=== PATIENT | male | born 1940 ===

== ENCOUNTER → 2025-04-21 08:52 | Outpatient (REF) | payer MEDICARE, OTHER, SELFPAY | LOC: RAD 08:52 | PROVIDERS: ATTENDING PHYSICIAN Internal Medicine Interventional Cardiology; FAMILY PHYSICIAN Family Medicine | DX: I35.0 Nonrheumatic aortic (valve) stenosis (principal) | CPT/HCPCS: 74174; 75572; Q9967 ==

== ENCOUNTER 2025-06-09 05:22 | Inpatient (IN) | payer MEDICARE, OTHER, SELFPAY ==
--- NOTE | 2025-06-02 08:30 | HPS.HSE ---
Family Physician
-
Family Physician: Wilda Rutledge MD
Chief Complaint
-
RENE/Fatigue
PreTAVR evaluation
History of Present Illness
Mr. Singh is a very pleasant 84-year-old gentleman with a past medical history significant for severe aortic stenosis, HTN, A-fib, HLD, CVA, CKD, right nephrectomy, CAD, and RBBB. His most recent echocardiogram from 02/15/2025 demonstrated an LVEF of
56% with peak/mean aortic valve gradients of 70/43 mmHg respectively. He has a peak velocity of 4.17 m/s he has trace to mild aortic insufficiency. He has moderate MAC. With trace MR and a mean mitral valve gradient of 2.3 mmHg. He has mild TR.
Subsequent cardiac catheterization performed on 03/25/2025 demonstrated nonobstructive epicardial CAD with marked ectasia of his RCA without any significant stenoses. He was reviewed with the heart team on 04/29/2025 and recommended for a 29mm S3 via
right transfemoral access.
Assessed Mr. Singh in preadmission testing and confirmed medication list. Last dose warfarin will be Friday (06/05), he will take 325 mg aspirin on Friday (06/06) and aspirin 81 mg -. Patient will arrive to the [facility] at 0530. Reviewed
the risks of the procedure as discussed in consult with Dr. Shanks including PPM, stroke, and vascular injury. Allowed for and answered questions to the best of my ability.
Medical History
Past Medical History
Past Medical History: Reports Arrhythmia (afib), CAD, CVA, HTN, Valvular Disease and Other (CKD, HLD, RBBB)
Additional Past Medical History:
aortic stenosis
Past Surgical History: Reports Orthopedic ((L) knee replacement, (L) rotator cuff repair) and Other ((R) nephrectomy, prostatectomy)
Social History
Tobacco: Former Smoker
Alcohol: None
Drug: None
Personal:
Living: With Family
Employment: Retired ([employer])
Family History
Family History: Not pertinent
Allergies / Home Medications
Allergies reflects when Allergies were last updated in [facility].
Home Medications with original date entered in [facility]
amLODIPine Besylate 5 MG Tablet 1 tablet Orally Once a day
Atorvastatin Calcium 40 MG Tablet 1 tablet Orally Once a day
Esomeprazole Magnesium 20 MG Tablet Delayed Release 1 tablet on Friday and Friday Orally twice weekly , Notes to Pharmacist: sarah
Lisinopril 5 MG Tablet 1 tablet Orally Once a day
Warfarin Sodium 5 MG Tablet 1 tablet Orally Once a day
Allergy/Medication List:
pencicillin
Review of Systems
-
A 12 point ROS was completed and negative except as noted: Yes
Constitutional: Reports Fatigue
Respiratory: Reports Other (RENE)
Physical Exam
Physical Exam
General: Well Developed, Well Nourished and No Apparent Distress
HEENT: NormoCephalic
Respiratory: Clear
Cardiac: Murmur (III/ RAVIN)
Breast: Deferred by me
GI: Soft and Non Tender
Rectal: Deferred by Provider
Skin: Warm and Dry
Neuro: Awake, Alert and Oriented
Data Reviewed
-
Diagnostic Radiology: Report Reviewed by me
CT Scan: Report Reviewed by me and Discussed with Physician (reviewed TAVR CT scan with the heart team)
Medical Tests (Nuc Med, Echo, EKG etc): Report Reviewed by me and Discussed with Physician (Reviewed Echocardiogram and cardiac catheterization with the heart team)
Lab Data: Labs Reviewed by me
Old Records: Reviewed
Impression/Plan
-
IMPRESSION/PLAN:
Aortic Stenosis
TF TAVR planned with Drs. Herrera and Dimitris utilizing a 29 mm S3
Hold warfarin x 3 days. Aspirin while warfarin held. D/c aspirin once warfarin resumed
POD #1/#30 Echo
Cardiac rehab consult
Labs
-
Labs:
WBC 6.8 10^3/uL (4.8-10.8) 06/02/25 11:59
RBC 4.97 10^6/uL (4.70-6.10) 06/02/25 11:59
Hgb 15.2 g/dL (13.0-18.0) 06/02/25 11:59
Hct 44.8 % (39.0-52.0) 06/02/25 11:59
Plt Count 191 10^3/uL (130-400) 06/02/25 11:59
Sodium 141 mmol/L (135-145) 06/02/25 11:59
Potassium 4.7 mmol/L (3.5-5.1) 06/02/25 11:59
Chloride 107 mmol/L (98-107) 06/02/25 11:59
Carbon Dioxide 28 mmol/L (22-30) 06/02/25 11:59
BUN 34 mg/dl (9-20) H 06/02/25 11:59
Creatinine 1.7 mg/dL (0.7-1.3) H 06/02/25 11:59
eGFR 39.51 06/02/25 11:59
Glucose 81 mg/dl (70-99) 06/02/25 11:59
Calcium 9.4 mg/dl (8.4-10.2) 06/02/25 11:59
Moa-G-Allatkutoim Pept 1480 pg/ml 06/02/25 11:59
Albumin 4.2 g/dl (3.5-5.0) 06/02/25 11:59
[2025-06-02 11:50] VITALS: BMI 31.2
[2025-06-02 12:33] LABS: Hematocrit 44.8 % (39.0-52.0); Hemoglobin 15.2 g/dL (13.0-18.0); Mean Corp Hgb Conc. 33.9 g/dL (33.0-37.0); Mean Corpuscular Volume 90.1 fL (80.0-94.0); Nucleated Red Blood Cells % 0 % (-); Platelet Count 191 10^3/uL (130-400); Red Cell Dist. Width 12.7 % (11.5-14.5)
[2025-06-02 12:37] LABS: Urine Character Clear (Clear)
[2025-06-02 12:55] LABS: INR 2.50; PT 27.4 Sec (11.4-14.6)
[2025-06-02 13:02] LABS: ALT (SGPT) 30 U/L (0-50); AST (SGOT) 33 U/L (17-59); Albumin 4.2 g/dl (3.5-5.0); Alkaline Phosphatase 80 U/L (38-126); Blood Urea Nitrogen 34 mg/dl (9-20); Calcium 9.4 mg/dl (8.4-10.2); Carbon Dioxide 28 mmol/L (22-30); Chloride 107 mmol/L (98-107); Estimated Creatinine Clearance 37 ml/min; Glucose 81 mg/dl (70-99); Potassium 4.7 mmol/L (3.5-5.1); Sodium 141 mmol/L (135-145); Total Protein 6.8 g/dl (6.3-8.2); eGFR 39.51
--- NOTE | 2025-06-02 13:13 | CM ---
Chart reviewed. Met with the patient and his in PAT. Reviewed preoperative and postoperative instructions and restrictions, along with showering guidelines. Gave patient 2 soaps and TAVR Book. Patient is agreeable to a home visit by CT
Transitional Care RN. Patient is independent of ADLS, lives in a [facility], [address] [facility], 0 DME. Plan is for the patient to return home with CT Transitional RN.
[2025-06-02 13:17] LABS: Urine Red Blood Cell 0-2 /HPF (0-2); Urine White Cell 0-2 /HPF (0-5)
[2025-06-02 14:14] LABS: Glycohemoglobin (HgbA1c) 5.5 % (4.0-5.6)
[2025-06-09] VITALS (50 sets, daily range): BP systolic 94–167; BP diastolic 57–104; BMI 30.9
[2025-06-09 06:01] LABS: INR 1.37; PT 17.3 Sec (11.4-14.6)
--- NOTE | 2025-06-09 06:14 | PTCARENOTE ---
Pt arrived from home with and friend into 2251. Pt AAOx3 ambulated independently. SR w PAC's and BBB. Pt did pre procedure prep at home last night and this morning. Pt was clipped upon arrival followed by CHG wipes. IV placed. 81 mg ASA was
taken @ 0 this morning and last Coumadin dose was Tuesday 06/05. Neuro WNL, speech clear, and CHOCTAW. ABO and protime collected and sent to lab.
--- NOTE | 2025-06-09 06:18 | W.CVOR.SURPR ---
CVOR Surgeon Immed Pre Op
-
I have examined this patient prior to performance of the scheduled procedure.
The patient's condition is unchanged from the time of the dictated/written History and
Physical and the patient is able to undergo the scheduled procedure.
[2025-06-09 08:34] LABS: ACT-LR - POC 248 Seconds (116-155)
[2025-06-09 09:00] LABS: ACT-LR - POC > 397 Seconds (116-155)
--- NOTE | 2025-06-09 09:00 | W.IMMPOSTOP ---
Surgical Immed Post Op Note
-
[id number]
STRUCTURAL HEART PROCEDURE NOTE: TAVR
Preoperative Dx:
Severe aortic stenosis (P/M: 70/43, Desizing Machine Operator 4.17, [id number] AI)
Trace MR and mild TR
Non-obstructive CAD w/ ectasia of RCA
Hx of CVA in 2010
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
PAF on Coumadin
CKD (1.7)
Right nephrectomy (benign mass)
Elevated PSA - s/p prostatectomy
Postoperative Dx:
Same
Ltltn-ni-cvkonod combined systolic/diastolic CHF w/ elevated LVEDP (26mmHg)
New CHB
Procedures:
1) L CFV access w/ U/S and fluoroscopic guidance, long 6Fr sheath placement
2) L HAT SPRAYER access w/ tactile, U/S, and fluoroscopic guidance, micropuncture technique, limited angiography via micropuncture sheath, long 6Fr sheath placement
3) R HAT SPRAYER access w/ tactile, U/S, and fluoroscopic guidance, micropuncture technique, limited angiography via micropuncture sheath, 8Fr dilator placement
4) Perclose placement x 2 into R HAT SPRAYER, 8Fr sheath placement
5) Placement of temporary RV pacing wire, threshold testing
6) Placement of Blackburn E-sheath via R HAT SPRAYER (systemic heparinization)
7) Placement of pigtail catheter in RCC via L HAT SPRAYER access w/ limited aortography & confirmation of co-planar valve deployment angle
8) Wire purchase across stenotic AV (AL-1, soft-tip straight, LVEDP assessment, extra-stiff)
9) R TF TAVR w/ placement of 29mm FADI 3 RESILA valve (+1)
10) Completion aortography
11) Completion TTE (mean gradient 5mmHg, trace AI (?wire related)
12) Temporary pacer secured secondary to CHB post deployment (repositioned x 1; resecured)
13) Removal of Blackburn E-sheath w/ R HAT SPRAYER mgmt w/ perclose sutures x 2; manual pressure
14) Completion R ileofemoral angiography
15) Removal of L HAT SPRAYER long 6Fr sheath w/ mgmt w/ 6Fr angioseal x 1; manual pressure (protamine administration)
Draft Roller Picker:
Dr. Maritza Herrera
Cardiac Surgeon:
Dr. Blade Shanks
Anesthesia:
MAC w/ local to B/L groins
Implants:
Blackburn Lifesciences; 29mm FADI 3 RESILIA; SN [id number]
Perclose x 2 to R HAT SPRAYER
6Fr angioseal x 1 to L HAT SPRAYER
Cath Data:
Start: 0753hrs, Deploy: 0832hrs, End: 0852hrs
FT: 10.1min, mGy: 236, DAP: 28.0, Contrast: 56mL
Post-TTE: mean gradient 5mmHg, trace AI
Complications:
New pacer-dependent CHB post TAVR (EP aware & planning for potential PPM placement for later today)
Condition:
Stable/guarded to recovery
--- NOTE | 2025-06-09 09:12 | CM ---
Addendum entered by CHRISSY Hinojosa 06/09/25 12:08:
Met w/ spouse at bedside.
Pt. was sleeping soundly.
Introduced CM, reviewed role.
Antic. DC plan is for home, no needs.
Original Note:
CM following for DC planning needs.
Patient in OR today for planned TAVR procedure.
DC plan is for home w/ CT Transitional Care RN.
Prior to admission, patient resides w/ spouse in a private, [facility]. Functionally, patient is indep. at baseline w/ ADLs, mobility.
CM to follow.
--- NOTE | 2025-06-09 09:49 | ITS.CL.TAVR ---
Supervisory Lifeguard - TAVR Report
TAVR PRocedure
Procedure Report:
TRANSCATHETER AORTIC VALVE REPLACEMENT
Date of Procedure: June 09, 2025
Referring: Thelma Kennedy
Operators: Drs. Maritza Herrera and Blade Shanks
PROCEDURE PERFORMED:
1. Successful placement of 29 +1cc mm Blackburn Rahel S3 aortic valve via right common femoral approach.
ACCESS:
1. Right common femoral artery, 8 Sudanese sheath, under ultrasound guidance using a micropuncture kit.
2. Right common femoral vein, 6 Sudanese sheath, under ultrasound guidance using a micropuncture kit.
3. Left common femoral artery, 6 Sudanese sheath, under ultrasound guidance using a micropuncture kit.
Ultrasound was utilized for vascular access. The right and left femoral artery and vein were visualized under ultrasound, and the vessels was patent and arteries were pulsatile. An image was stored permanently in the patient's medical record.
Under direct ultrasound guidance, a 8 Sudanese sheaths was inserted into the right common femoral artery and vein, and an 6 Sudanese sheath in the left common femoral artery, respectively, using a micropuncture kit through a modified Seldinger technique.
PREPROCEDURE NYHA CLASS: II
DESCRIPTION OF PROCEDURE: The patient was referred for assessment of severe symptomatic aortic stenosis and following a comprehensive evaluation it was felt that transcatheter aortic valve replacement (TAVR) would be the most appropriate treatment.
Informed consent was obtained prior to the procedure. A 'time-out' was called and the procedural plan was verbally confirmed by anesthesia, surgery, perfusion, and clinical laboratory aide staff.
Arterial and venous access site were obtained in the left common femoral artery and vein using ultrasound guidance and micropuncture technique. 6 Fr. sheaths were inserted.
A 5 Fr. transvenous pacing wire was advanced to the right ventricle where excellent pacing thresholds were obtained.
A 5 Fr. pigtail catheter was then advanced to the proximal ascending aorta / right aortic cusp where angiography was performed in multiple angles to define the co-planar angle that was most appropriate valve deployment (GIBBS 3/CAU 12 ).
Ultrasound guidance was then used to obtain arterial access in the [ ] common femoral artery and a 4 Fr. micropuncture sheath was inserted. Angiography was performed and the arteriotomy site appeared appropriate for preclosure with two Perclose
devices. An 8 Fr sheath was then inserted back into the common femoral artery over a J-tipped guidewire. An AL1 catheter was positioned in the proximal descending aorta. An Extra Stiff 0.035' J-tip wire was inserted to provide extra-support to
facilitate the Blackburn eSheath delivery. The 16 Fr. Blackburn eSheath was successfully advanced in the descending thoracic aorta.
An AL1 catheter was advanced through the Blackburn eSheath over a 0.035' J-tip guide wire. The AL1 catheter was positioned just above the aortic valve. A 0.035' Straight tip wire probed the aortic valve and crossed the stenotic leaflets. The AL1
was then advanced to the mid left ventricle. Estimated LV end-diastolic pressure invasively was 25. An Amplatz Extra-stiff wire with a generous curved tip was then positioned in the left ventricular apex. A 29 +1cc mm Blackburn Rahel S3 valve was
brought to the table and the orientation of the valve on the balloon delivery system was confirmed by all operators. The Rahel S3 valve was advanced through the eSheath and into the proximal descending thoracic aorta. The Rahel S3 valve was
centered on the delivery balloon and the entire system was retroflexed as it crossed the aortic arch. The Rahel S3 delivery system was then advanced across the stenotic valve and the 29 +1cc mm Rahel S3 valve was deployed during rapid pacing.
The valve deployment was uneventful. Transthoracic echocardiographic images post valve deployment revealed minimal aortic insufficiency with excellent position of the aortic prosthesis. Patient unfortunately with a baseline right bundle branch
block developed complete heart block post valve deployment and therefore the transvenous temporary pacemaker was sutured in place via left common femoral venous sheath and electrophysiology will be consulted for permanent pacemaker.
The Blackburn balloon and delivery system were then removed. The Blackburn sheath was removed and the Perclose knots were advanced to the arteriotomy site resulting in excellent hemostasis.
Fluoro Time: 10.1 min, Dose: 236 mGy, DAP : 28.0 gy.cm2
CONCLUSIONS:
1. Severe symptomatic aortic stenosis. Successful deployment of a 25 mm Rahel S3 valve with minimal aortic insufficiency post procedure
2. Successful arteriotomy closure with 2 Perclose devices.
3. Acute on chronic diastolic heart failure with LVEDP of 25mmHg.
Maritza Herrera MD, FACC, [facility]
Copy to: Thelma Kennedy
--- NOTE | 2025-06-09 11:15 | PTCARENOTE ---
Received pt from cardiac cardiac cath lab radiology technologist at [address] [facility] [address]. Left groin site w/ venous sheath intact w/ temporary pacer wire. Temporary pacemaker settings:80 w/ MA of 20. IVF's at 10 ml/hr through venous sheath. Levophed at 1 mcg/min. Post TAVR
orders noted. Pt remains NPO for PPM.
--- NOTE | 2025-06-09 13:33 | W.PN.UPDATE ---
Update Note
Progress Note Update
Discussed with patient and need for permanent pacing. Pre TAVR RBBB. Postoperatively he has been 100% pacing via temporary wire without underlying rhythm.
Discussed left sided implant with 1:1000 risk of MA/stroke/ and a 1% risk for PTX, tamponade, infection, bleeding or lead dislodgement. Patient gave assent and patient's signed informed consent. I took time to answer all questions.
--- NOTE | 2025-06-09 17:27 | ITS.CL.PACE ---
Welcome Center Attendant - Pacemaker Implant
Pacemaker Implant
Procedure Report:
Date of Procedure: June 09, 2025
Patient : 1940
Procedure: Pacemaker Implantation.
Indication: Complete heart block after TAVR procedure
Implants:
Pulse Generator: Medtronic; Model# W1 DR 01 SN: [id number]
RA Lead: Medtronic; Model# 4574; SN: [id number]
RV Lead: Medtronic; Model# 4074; SN: [id number]
Technique: A time out was performed. The procedure site was identified. The patient was anesthetized by the anesthesia service. Preoperative sedation was administered. The patient was prepped and draped in the usual fashion. Local anesthetic was
applied to the left prepectoral subcutaneous tissue. A 3 inch incision was made 2.5 inches below the left clavicle. A subcutaneous pocket was created with blunt and sharp dissection and hemostasis controlled with Bovie cautery. The left axillary
vein was accessed within the pocket without difficulty. Hemostasis was excellent. The leads were introduced with 7 Fr hemostatic peel away introducer sheaths. The ventricular lead was placed at the right ventricular apex. The atrial lead was placed
in the right atrial appendage. 10 volt pacing did not capture the diaphragm. The leads were secured to the pectoralis muscle and fascia. The leads were appropriately attached to the device. The pocket was irrigated with antibiotic solution. The
device and leads were placed in the pocket. The incision was closed in three layers with absorbable suture. The estimated blood loss was minimal. There were no complications.
6.5 minutes of pulsed fluoroscopy 18.7 mg
After the leads were connected to the generator and placed in the pocket we then removed the left femoral vein temporary pacemaking wire under direct fluoroscopic guidance without any displacement of the pacemaker leads and check of the leads after
removal of the temporary wire demonstrated stable parameters.
Lead Analysis:
RA lead: P: 4.3 mV; Threshold: 0.5 V @ 0.5 ms; Impedance: 684 ohms.
RV lead: R: 0 mV; Threshold: 0.5 V @ 0.5 ms; Impedance: 1235 ohms.
Final Programming: DDDR 6030 bpm
Conclusion: Uncomplicated Medtronic pacemaker implant.
Recommendation: Routine post pacemaker care.
--- NOTE | 2025-06-09 18:01 | PTCARENOTE ---
Received pt post PPM. The temporary wire and venous sheath via the left femoral vein were d/c'd in the laborer prestressed concrete. Left groin dressing clean, dry and intact. Left ACW PPM antibacterial dressing clean, dry and intact. Left arm immobilizer intact.
Post op orders noted. Will monitor.
[2025-06-09] MEDS: LIPITOR PO (19:33)
[2025-06-10] VITALS (8 sets, daily range): BP systolic 116–158; BP diastolic 62–84; PULSE 68; O2SAT 72–98; BMI 31.5
--- NOTE | 2025-06-10 00:33 | PTCARENOTE ---
Rec'd pt at change of shift. Pt AAO*3, VSS, and vpaced on TELE monitor with occasional AV pacing. Pt with bilateral groin sites CDI. PT denies having any pain or discomfort. Pt taken to XRay for post procedure Xray with RN. Pt updated on plan
of care and agrees to activity restrictions. See MAR and flowchart for full pt care and assessment. Pt resting with call sanchez in reach.
[2025-06-10 04:02] LABS: Hematocrit 41.2 % (39.0-52.0); Hemoglobin 14.4 g/dL (13.0-18.0); Mean Corp Hgb Conc. 35.0 g/dL (33.0-37.0); Mean Corpuscular Volume 89.4 fL (80.0-94.0); Platelet Count 143 10^3/uL (130-400); Red Cell Dist. Width 12.7 % (11.5-14.5)
[2025-06-10 04:13] LABS: INR 1.31; PT 16.8 Sec (11.4-14.6)
[2025-06-10 04:23] LABS: Blood Urea Nitrogen 29 mg/dl (9-20); Calcium 9.2 mg/dl (8.4-10.2); Carbon Dioxide 22 mmol/L (22-30); Chloride 112 mmol/L (98-107); Estimated Creatinine Clearance 52 ml/min; Glucose 101 mg/dl (70-99); Magnesium 2.1 mg/dl (1.6-2.3); Potassium 4.4 mmol/L (3.5-5.1); Sodium 138 mmol/L (135-145); eGFR > 60.00
--- NOTE | 2025-06-10 06:20 | W.PN.CT ---
Today's Communication / Plan
-
-pod #1
-no issues overnight
-s/p permanent pacer post TAVR. AV-paced 60s-70s with PACs overnight
-Echo today
-current meds (Lipitor, Zestril, Norvasc, Protonix). Re-start Coumadin. INR today 1.31
-Echo today
-encourage IS, ambulate
-likely d/c
Assessment / Plan
-
- Severe symptomatic - s/p R TF TAVR w/ placement of 29mm FADI 3 RESILA valve (+1) on 06/09/25, pod #1
- Post-TTE: mean gradient 5mmHg, trace AI
- Ymdoy-zy-uwzjruh combined systolic/diastolic CHF w/ elevated LVEDP (26mmHg)
- CHB post TAVR - s/p pacemaker implant by Dr. Workman on 06/09/25
- Trace MR and mild TR
- Non-obstructive CAD w/ ectasia of RCA
- Hx of CVA in 2010
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
- Paroxysmal AF on Coumadin
- CKD (1.7)
- Right nephrectomy (benign mass)
- Elevated PSA - s/p prostatectomy
Discussed patient care with: Nursing and Care Team
Subjective
-
Date of Service: June 09, 2025
Objective Data
-
Lab Results
06/02/25 11:59
06/02/25 11:59
PT 17.3 Sec (11.4-14.6) H 06/09/25 05:38
INR 1.37 06/09/25 05:38
Vital Signs
Vital Signs
Temp Pulse Resp BP Pulse Ox
97.8 F 70 16 132/62 95
06/09/25 22:30 06/09/25 22:30 06/09/25 22:30 06/09/25 22:30 06/09/25 22:30
CT Intake/Output/Weight
06/09/25 06/09/25 06/10/25
06:59 18:59 06:59
Intake Total 251.4 / 251.4
Output Total 600 / 800 200 / 800
Balance -600 / -548.6 51.4 / -548.6
SaO2: 95
Physical Exam
-
General: Awake and AOx3
Cardiovascular: Regular rate & rhythm, No Murmurs and No Rub
Respiratory: Clear and Decreased Breath Sounds
Sternum: Stable
Incision: Other (groins are cdi, soft, nontender, no hematoma b/l)
Extremities: Other (trace edema, 2+ DPs b/l)
Abdomen: soft, nontender, nondistended, + bowel sounds
Data Reviewed
-
Lab Results: Results Reviewed
Medications: Active Meds Reviewed
Chest X-Ray: Report Reviewed and Image Reviewed
ECG: Report Reviewed and Image Reviewed
[2025-06-10] MEDS: PROTONIX 40 MG PO (08:41)
[2025-06-10] MEDS: ZESTRIL 5 MG PO (08:42)
[2025-06-10] MEDS: LIPITOR 40 MG PO (08:42)
--- NOTE | 2025-06-10 08:50 | W.DCSUMMARY ---
Discharge Summary
Discharge Data
Date of Admission: 06/09/25
Date of Discharge: 06/10/25
-
Pending Results: No
Hospital Course
Primary care physician: Wilda Rutledge
Outpatient android developer: Thelma Kennedy
Inpatient consultants: [facility]
Procedures:
1. 06/09/2025 right transfemoral TAVR with a #29 S3 Resilia by Drs. Shanks and Sharon
2. 06/09/2025 medtronic permanent pacemaker implantation by Dr. Leo Workman
Primary Diagnosis:
1. severe aortic stenosis
2. acute on chronic systolic & diastolic CHF with LVEDP 26mmHg
3. complete heart block post TAVR now s/p medtronic PPM implant 06/09/25
Secondary Diagnoses:
1. nonobstructive CAD with ectasia of RCA
2. hx CVA 2010
3. chronic RBBB
4. paroxysmal atrial fibrillation, chronically on coumadin
5. CKD with baseline creat ~1.7
6. hx right nephrectomy for benign mass
7. elecated PSA s/p prostatectomy
HPI: Patient is an 84-year-old male with complaints of dyspnea on exertion and fatigue. Most recent echo demonstrated now severe with peak and mean gradient of 70/43 mmHg with preserved EF at 53%. He was referred for TAVR. After all preop
workup was completed he was deemed a suitable candidate to undergo the procedure.
Hospital course: Patient was brought in electively on 06/09/2025 where he underwent a right transfemoral TAVR by Drs. Shanks and Sharon. Postprocedure he developed a complete heart block and the temporary pacing wire was left in place through the
venous sheath postop. Patient was evaluated by EP who determined need for permanent pacemaker which was implanted later that evening. Please see full operative reports for details. Patient remained hemodynamically stable overnight, he is AV
paced. Pacer incision site and bilateral groins are stable. Follow-up echo demonstrates a well-seated TAVR with mean gradient of 8 mmHg. Norvasc was discontinued and patient was started on Toprol-XL per recommendations from cardiology. Patient
is ambulatory and stable for discharge to home.
Home medication changes: Norvasc has been stopped, patient started on Toprol XL 12.5 mg daily
Discharge Plan
-
Patient Disposition: Home (Routine Discharge)
Discharge Diagnosis/Procedures: severe ; s/p right TF TAVR, Pacemaker implant 06/09/25
Condition: Good
Diet: Low Cholesterol and Low Sodium
Activity: No strenuous activity
Driving Restrictions: No driving for 1 week
Bathing Restrictions: OK to Shower
Others Tests: 30 day follow up echo:
Other Services: Cardiac Rehab
Specialty Instructions: Weigh Daily- Call MD for wt gain/loss 3 lbs overnight/5 lbs in 1 week
Activity Restrictions/Additional Instructions:
Please Call to make appointments for Phase II Cardiac Rehab:
1) [facility]'s: [phone] (19 min away)
2) [facility]'s: [phone] (13 min away)
Stand Alone Forms: DC Inst - Implanted Device
Referrals:
[facility] [Provider Group] - 06/16/25 10:20 am
Referral Note: Incision check appointment
CT Transitional Care Nurse [Outside]
Referral Note: The Cardiothoracic Transitional Care Nurse will call you to set up a visit in 1-2 days.
Thelma Kennedy MD [Non-Admitting Privileges, Cardiology] - 07/04/25 4:05 pm
Wilda Rutledge MD [Family Provider]
Prescriptions:
New
acetaminophen 325 mg Tablet
650 mg PO Q6HPRN PRN (Reason: TOVAR, mild pain, or fever >101F) Qty: 0 0RF
metoprolol succinate 25 mg Tablet Extended Release 24 Hr
12.5 mg PO DAILY Qty: 15 1RF
Continued
atorvastatin 40 mg Tablet
40 mg PO DAILY Qty: 0 0RF
esomeprazole magnesium 20 mg Tablet,Delayed Release (Dr/Ec)
20 mg PO DAILY Qty: 0 0RF
warfarin 5 mg Tablet
5 mg PO DAILY Qty: 0 0RF
lisinopril 5 mg Tablet
5 mg PO DAILY Qty: 0 0RF
Discontinued
amlodipine 5 mg Tablet
5 mg PO DAILY
Discharge Orders:
Discharge Patient (As Directed); Ordered 06/10/25
Ordered By: Galina Chase
Care Plan Goals
Care Plan Goals:
Problem: Readiness for enhanced knowledge related to diagnosis and treatment plan
Goal: Understand your diagnosis and treatment plan needs, including medications if applicable.
Instructions: Know your diagnosis, underlying causes and treatment plan options, including medications if applicable. Consult with your health care team to learn about your diagnosis and treatment plan, including medications if applicable.
Discharge Date and Time
Print Language: QATARI
--- NOTE | 2025-06-10 08:59 | W.PN.CARDCBS ---
Addendum entered and electronically signed by Maritza Herrera MD 06/10/25 18:36:
I saw and examined the patient.
The Invoicing Machine Operator's note was reviewed and I agree with the note.
Comment: Patient is doing well post 29 mm Blackburn FADI 3 Resilia valve yesterday +1 cc on June 09, 2025 through right common femoral artery.
No complaints this morning.
Vital signs and lab work reviewed. On exam patient is well-appearing, no acute distress, regular rate, normal S1 and S2, no murmurs, rubs or gallops, abdomen is soft, nontender, nondistended with active bowel sounds, bilateral groin sites without
evidence of hematoma or bruit, warm extremities without significant edema.
Recommendations
1. Postop day 1 echocardiogram reviewed showing preserved LV systolic function and mean transaortic gradient of 8 mmHg without significant PVL.
2. Given TAVR was complicated by complete heart block he underwent Medtronic pacemaker on June 09, 2025, doing well from the standpoint.
3. Given frequent atrial ectopy, agree with low-dose beta-malia.
4. Paroxysmal atrial fibrillation, resume Coumadin this evening with plan to recheck INR next week.
Outpatient cardiology follow-up. Otherwise stable for discharge from a cardiac standpoint.
Maritza Herrera MD, [facility], [facility]
Original Note:
Today's Communication / Plan
-
Doing well status post TAVR and pacemaker
Consider transitioning Norvasc to Toprol
Check echo
Ambulate
Coumadin to restart tonight
Will arrange outpatient cardiac follow-up
Impression / Plan
-
Primary Glassworker: Dr. Kennedy of [facility]
Assessment:
- Severe s/p R TF TAVR 29mm FADI 3 RESILA valve (+1) 06/09/25
- [id number] combined systolic/diastolic CHF, LVEDP 26mmHg
- CHB post TAVR s/p Medtronic pacemaker implant 06/09/25
- Non-obstructive CAD w/ ectasia of RCA
- Hx of CVA in 2010
- Chronic RBBB
- PACs
- Paroxysmal AF on chronic coumadin
- CKD, baseline Cr ~1.7
- Right nephrectomy for benign mass
- Elevated PSA s/p prostatectomy
ECHO 06/09/2025: Limited echo immediately post TAVR deployment, EF normal, number 29 mm Blackburn TAVR with mean gradient 5 mmHg, trace AR
ECHO 06/10/2025: Pending
Plan:
- Status post right transfemoral TAVR 06/09/2025
- Was noted to have complete heart block status post TAVR and underwent Medtronic pacemaker implant 06/09/2025
- Chest x-ray without pneumothorax
- In sinus rhythm with PACs and brief run of PAT versus A-fib on review of telemetry overnight. Would consider transitioning Norvasc to beta-malia
- Continue outpatient lisinopril. Creatinine stable at 1.2
- LVEDP at time of TAVR was 25 mmHg. Not on diuretic therapy as outpatient. Not presently short of breath, and does not examine volume overloaded
- Hemoglobin stable at 14.4. Bilateral groin sites soft, clean dry and intact, nontender to palpation. Plan to resume Coumadin tonight, on 5 mg daily as outpatient. INR 1.3
- Check echo, reviewed report from echo 06/09 as above
- Ambulate
- Reviewed activity restrictions/limitations post TAVR and pacemaker with patient
- Will arrange outpatient cardiac follow-up
Progress Note - Glassworker
Subjective
Date of Service: June 10, 2025
Feeling well. No issues overnight
Objective
Labs:
06/10/25 02:58
06/10/25 02:58
Labs
Hgb 14.4 g/dL (13.0-18.0) 06/10/25 02:58
Hct 41.2 % (39.0-52.0) 06/10/25 02:58
Plt Count 143 10^3/uL (130-400) 06/10/25 02:58
PT 16.8 Sec (11.4-14.6) H 06/10/25 02:58
INR 1.31 06/10/25 02:58
Sodium 138 mmol/L (135-145) 06/10/25 02:58
Potassium 4.4 mmol/L (3.5-5.1) 06/10/25 02:58
BUN 29 mg/dl (9-20) H 06/10/25 02:58
Creatinine 1.2 mg/dL (0.7-1.3) 06/10/25 02:58
Glucose 101 mg/dl (70-99) H 06/10/25 02:58
Vital Signs and I&O:
Vital Signs
Temp Pulse Resp BP Pulse Ox
97.8 F 68 18 132/62 96
06/10/25 08:40 06/10/25 08:00 06/10/25 08:40 06/10/25 07:45 06/10/25 02:46
Vital Signs
Temp Pulse Resp BP Pulse Ox
97.8 F 68 18 132/62 96
06/10/25 08:40 06/10/25 08:00 06/10/25 08:40 06/10/25 07:45 06/10/25 02:46
Intake & Output
06/08/25 06/09/25 06/10/25 06/11/25
07:59 07:59 07:59 07:59
Intake Total 731.4 / 731.4
Output Total 1100 / 1100
Balance -368.6 / -368.6
Physical Exam
Physical Exam
GEN: No distress, awake, alert, oriented x3. Left arm immobilizer in place
HEENT: supple, anicteric, mmm, EOMI
LUNGS: CTA bilaterally, no wheezes/rales
CV: Reg, S1/S2, 1/6 syst LSB
ABD: soft, BS+, NT/ND
EXT: No cyanosis, clubbing, edema
NEURO: Gross non-focal
SKIN: Warm, pink, dry. No rash. Bilateral groin sites clean dry and intact, soft, nontender to palpation
[2025-06-10] MEDS: TOPROL XL 12.5 MG PO (11:50)
--- NOTE | 2025-06-10 13:06 | W.PN.ANS.POP ---
Anesthesia Post Operative
- Anesthesia Post Op Note
Vital Signs Stable-See Nursing Note: Yes
Airway Patent: Yes
Adequate Pain Control: Yes
Change in Mental Status: No
Current Postoperative Nausea & Vomiting: No
Anesthesia Complications: No
General Anesthetic Recall: No
Unplanned Admission: No
Post Op Hydration Adequate: Yes
== END 2025-06-10 16:55 | disposition home or self-care (01) | DRG 266 ==
LOC: IVU 05:22
PROVIDERS: Internal Medicine Cardiovascular Disease; Nurse Practitioner; Nurse Practitioner Acute Care; Physician Assistant Medical; ADMITTING PHYSICIAN Thoracic Surgery (Cardiothoracic Vascular Surgery); ATTENDING PHYSICIAN Thoracic Surgery (Cardiothoracic Vascular Surgery); CONSULT PHYSICIAN Internal Medicine Interventional Cardiology; FAMILY PHYSICIAN Family Medicine; REFERRING PHYSICIAN Internal Medicine Cardiovascular Disease
PROC: 02HK3JZ Insertion of Pacemaker Lead into Right Ventricle, Percutaneous Approach (ICD-10-PCS; 2025-06-09)
PROC: 02H63JZ Insertion of Pacemaker Lead into Right Atrium, Percutaneous Approach (ICD-10-PCS; 2025-06-09)
PROC: 0JH606Z Insertion of Pacemaker, Dual Chamber into Chest Subcutaneous Tissue and Fascia, Open Approach (ICD-10-PCS; 2025-06-09)
PROC: 02RF38Z Replacement of Aortic Valve with Zooplastic Tissue, Percutaneous Approach (ICD-10-PCS; 2025-06-09)
DX: I35.2 Nonrheumatic aortic (valve) stenosis with insufficiency (principal); Z00.6 Encounter for examination for normal comparison and control in clinical research program; I50.43 Acute on chronic combined systolic (congestive) and diastolic (congestive) heart failure; I13.0 Hypertensive heart and chronic kidney disease with heart failure and stage 1 through stage 4 chronic kidney disease, or unspecified chronic kidney disease; I44.2 Atrioventricular block, complete; I25.10 Atherosclerotic heart disease of native coronary artery without angina pectoris; I48.0 Paroxysmal atrial fibrillation; N18.1 Chronic kidney disease, stage 1; E78.5 Hyperlipidemia, unspecified; I45.10 Unspecified right bundle-branch block; Z90.5 Acquired absence of kidney; Z87.891 Personal history of nicotine dependence; Z86.73 Personal history of transient ischemic attack (TIA), and cerebral infarction without residual deficits; Z79.01 Long term (current) use of anticoagulants
CPT/HCPCS: 33208; 33361; 36415; 71045; 71046; 80048; 80053; 81003; 81015; 82248; 83036; 83735; 83880; 85025; 85027; 85347; 85610; 86850; 86900; 86901; 87070; 93005; 93308; 93321; 93325; C1760; C1769; C1785; C1892; C1894; C1898; Q9967